=== PATIENT | female | born 1975 | race Caucasian/White ===

== ENCOUNTER 2023-10-29 10:16 | Inpatient (IN) | payer MEDICARE, OTHER ==
[~2023-10-29] VITALS: Ht 152.4 cm; Wt 70.8 kg
[2023-10-29] MEDS ORDERED: MORPHINE SULFATE INJ 4 MG/ML DISP.SYRIN ONE (10:42)
[2023-10-29] MEDS ORDERED: ONDANSETRON HCL/PF 4 MG/2 ML VIAL ONE (10:42)
[2023-10-29] MEDS: ONDANSETRON HCL/PF 4 MG/2 ML VIAL IVP ONE (10:53)
[2023-10-29] MEDS: MORPHINE SULFATE INJ 2 MG/ML DISP.SYRIN IV ONE (10:57)
[2023-10-29] MEDS ORDERED: LATA5DRO EACHEYE (10:57)
[2023-10-29] MEDS ORDERED: INSU100V30 SQ (10:57)
[2023-10-29] MEDS ORDERED: INSU100I26 SQ ×2 (10:57)
[2023-10-29] MEDS ORDERED: TOPI100T PO (10:57)
[2023-10-29] MEDS ORDERED: OLAN10TA3 PO (10:57)
[2023-10-29] MEDS ORDERED: MULT-754 PO (10:57)
[2023-10-29] MEDS ORDERED: LACT10SO58 PO (10:57)
[2023-10-29] MEDS ORDERED: PHEN300C6 PO (10:57)
[2023-10-29] MEDS ORDERED: ONDA4TAB5 PO (10:57)
[2023-10-29] MEDS ORDERED: LORA10TA7 PO (10:57)
[2023-10-29] MEDS ORDERED: GABA300C PO (10:57)
[2023-10-29] MEDS ORDERED: POTA8CAP20 PO (10:57)
[2023-10-29] MEDS ORDERED: BENZ1TAB7 PO (10:57)
[2023-10-29] MEDS ORDERED: SEMA0.25 SQ (10:57)
[2023-10-29] MEDS ORDERED: BISA10SU11 RC (10:57)
[2023-10-29] MEDS ORDERED: PANT20TA2 PO (10:57)
[2023-10-29] MEDS ORDERED: DICY10CA13 PO (10:57)
[2023-10-29] MEDS ORDERED: LEVE500T20 PO (10:57)
[2023-10-29] MEDS ORDERED: TEMA15CA PO (10:57)
[2023-10-29] MEDS ORDERED: DOCU250C14 PO (10:57)
[2023-10-29] MEDS ORDERED: ESCI5TAB PO (10:57)
[2023-10-29] MEDS ORDERED: BUSP15TA3 PO (10:57)
[2023-10-29] MEDS ORDERED: ISOS30TA86 PO (10:57)
[2023-10-29] MEDS ORDERED: METO25TA6 PO (10:57)
[2023-10-29 11:03] LABS: BASOPHILS # (AUTO) 0.1 K/uL (0.0-0.2); BASOPHILS % (AUTO) 0.9 % (0.0-2.0); EOSINOPHILS # (AUTO) 0.1 K/uL (0.0-0.7); EOSINOPHILS % (AUTO) 1.3 % (0.0-6.0); HEMATOCRIT 46 % (33-45); HEMOGLOBIN 15.5 g/dL (11.5-14.8); LYMPHOCYTES # (AUTO) 3.2 K/uL (0.8-4.8); LYMPHOCYTES % (AUTO) 36.3 % (20.0-44.0); MEAN CORPUSCULAR HEMOGLOBIN 30 PG (26.0-33.0); MEAN CORPUSCULAR HGB CONC 34 g/dl (31.0-36.0); MEAN CORPUSCULAR VOLUME 90 fL (82-100); MONOCYTES # (AUTO) 0.8 K/uL (0.1-1.30); MONOCYTES % (AUTO) 8.8 % (2.0-12.0); NEUTROPHILS # (AUTO) 4.7 K/uL (1.8-8.9); NEUTROPHILS % (AUTO) 52.7 % (43.0-81.0); PLATELET COUNT (AUTO) 261 K/uL (150-450); RED BLOOD CELL COUNT(AUTO) 5.13 MIL/uL (4.0-5.2); RED CELL DISTRIBUTION WIDTH 12.7 % (11.5-15.0); WHITE BLOOD COUNT (AUTO) 8.8 K/uL (4.3-11.0)
[2023-10-29 11:19] LABS: INR 1.07 (0.91-1.10); PARTIAL THROMBOPLASTIN TIME 29.2 SEC (24.3-34.3); PROTHROMBIN TIME 11.3 SECS (9.2-11.1)
[2023-10-29 11:35] LABS: ALANINE AMINOTRANSFERASE 60 U/L (12-78); ALBUMIN 3.2 g/dL (3.4-5.0); ALKALINE PHOSPHATASE 150 U/L (46-116); ASPARTATE AMINOTRANSFERASE 43 U/L (15-37); BILIRUBIN,DIRECT 0.1 mg/dL (0.0-0.2); BILIRUBIN,TOTAL 0.3 mg/dL (0.2-1.0); CALCIUM, SERUM 9.8 mg/dL (8.5-10.1); CARBON DIOXIDE 26 mmol/L (21-32); CHLORIDE 103 mmol/L (98-107); CREATININE 0.5 mg/dL (0.6-1.3); GLUCOSE 118 mg/dL (74-106); POTASSIUM 3.7 mmol/L (3.5-5.1); SODIUM SERUM 139 mmol/L (136-145); UREA NITROGEN, BLOOD 6 mg/dL (7-18)
[2023-10-29] MEDS ORDERED: TEMAZEPAM 15 MG CAPSULE PO PRN (12:30)
[2023-10-29] MEDS ORDERED: Z GUARD REMEDY 4 OZ OINT TP PRN (12:30)
[2023-10-29] MEDS ORDERED: DEXTROSE 50%-WATER 50 ML DISP.SYRIN IV PRN (12:30)
[2023-10-29] MEDS ORDERED: MAGNESIUM HYDROXIDE 30 ML UDC PO PRN (12:30)
[2023-10-29] MEDS ORDERED: MAG HYDROX/AL HYDROX/SIMETH 30 ML UDC PO PRN (12:30)
[2023-10-29] MEDS ORDERED: DICYCLOMINE HCL 10 MG CAPSULE PO PRN (12:30)
[2023-10-29] MEDS ORDERED: ONDANSETRON HCL/PF 4 MG/2 ML VIAL IVP PRN (12:30)
[2023-10-29] MEDS ORDERED: ZOLPIDEM TARTRATE 5 MG TABLET PO PRN (12:30)
[2023-10-29] MEDS ORDERED: ACETAMINOPHEN 325 MG TABLET PO PRN (12:30)
[2023-10-29 13:25] VITALS: BP 120/75; TEMP 98.1; O2SAT 97; O2SAT 98
[2023-10-29 16:00] VITALS: BP 114/76; TEMP 98.2; O2SAT 95
[2023-10-29] MEDS: BLOOD SUGAR DIAGNOSTIC 1 EACH STRIP IN SCH (17:11)
[2023-10-29] MEDS: LACTULOSE 10 G/15 ML UDC (PYXIS) PO SCH (17:12)
[2023-10-29] MEDS: PHENYTOIN EXTENDED RELEASE 100 MG CAPSULE PO SCH (17:12)
[2023-10-29] MEDS: LEVETIRACETAM (250 MG) 250 MG TABLET PO SCH (17:13)
[2023-10-29] MEDS: GABAPENTIN 300 MG CAPSULE PO SCH (17:13)
[2023-10-29] MEDS: DOCUSATE SODIUM 250 MG CAPSULE PO SCH (17:13)
[2023-10-29] MEDS: BENZTROPINE MESYLATE (1 MG) 1 MG TABLET PO SCH (17:13)
[2023-10-29] MEDS: OLANZAPINE 10 MG TABLET PO SCH (17:13)
[2023-10-29] MEDS: busPIRone 5 MG TABLET PO SCH (17:14)
[2023-10-29] MEDS: TOPIRAMATE 100 MG TABLET PO SCH (17:14)
[2023-10-29] MEDS: INSULIN REGULAR, HUMAN 100 UNIT/ML 3 ML VIAL SQ PRN (17:25)
[2023-10-29 20:00] VITALS: BP 135/83; TEMP 97.9; O2SAT 95
[2023-10-29] MEDS: METOPROLOL TARTRATE 25 MG TABLET PO SCH (21:24)
[2023-10-29] MEDS: INSULIN GLARGINE, 100 UNIT/ML CARTRIDGE SQ SCH (21:35)
[2023-10-29] MEDS: MORPHINE SULFATE INJ 4 MG/ML DISP.SYRIN IV PRN (21:45)
[2023-10-29] MEDS ORDERED: Medication Not On Formulary EA (Latanoprostene Bunod (Vyzulta) 1 DROP) EACHEYE SCH (22:00)
[2023-10-30] VITALS: BP 138/86; TEMP 98.1; O2SAT 92
[2023-10-30 04:00] VITALS: BP 127/89; TEMP 97.7; O2SAT 95
[2023-10-30 06:53] LABS: BASOPHILS % (AUTO) 0.5 % (0.0-2.0); EOSINOPHILS # (AUTO) 0.2 K/uL (0.0-0.7); HEMATOCRIT 43 % (33-45); HEMOGLOBIN 14.5 g/dL (11.5-14.8); LYMPHOCYTES # (AUTO) 2.5 K/uL (0.8-4.8); LYMPHOCYTES % (AUTO) 31.4 % (20.0-44.0); MEAN CORPUSCULAR HEMOGLOBIN 31 PG (26.0-33.0); MEAN CORPUSCULAR HGB CONC 34 g/dl (31.0-36.0); MEAN CORPUSCULAR VOLUME 91 fL (82-100); MONOCYTES # (AUTO) 0.8 K/uL (0.1-1.30); MONOCYTES % (AUTO) 9.8 % (2.0-12.0); NEUTROPHILS # (AUTO) 4.4 K/uL (1.8-8.9); NEUTROPHILS % (AUTO) 56.3 % (43.0-81.0); PLATELET COUNT (AUTO) 216 K/uL (150-450); RED CELL DISTRIBUTION WIDTH 12.7 % (11.5-15.0); WHITE BLOOD COUNT (AUTO) 7.9 K/uL (4.3-11.0)
[2023-10-30 07:30] VITALS: BP 134/90; TEMP 97.5; O2SAT 97
[2023-10-30 07:33] LABS: ALBUMIN 2.7 g/dL (3.4-5.0); BILIRUBIN,TOTAL 0.2 mg/dL (0.2-1.0); CALCIUM, SERUM 9.3 mg/dL (8.5-10.1); CREATININE 0.5 mg/dL (0.6-1.3); MAGNESIUM 1.9 mg/dL (1.8-2.4); PHOSPHORUS 3.8 mg/dL (2.5-4.9); POTASSIUM 3.5 mmol/L (3.5-5.1); TOTAL PROTEIN, SERUM 7.2 g/dL (6.4-8.2)
[2023-10-30] MEDS: PANTOPRAZOLE 40 MG TABLET.DR PO SCH (08:58)
[2023-10-30] MEDS: MULTIVITAMINS,THERAGRAN 1 UDTAB TABLET PO SCH (08:58)
[2023-10-30] MEDS: ESCITALOPRAM OXALATE (10 MG) 10 MG TABLET PO SCH (08:59)
[2023-10-30] MEDS: ISOSORBIDE MONONITRATE (30MG) 30 MG TAB.SR.24H PO SCH (08:59)
[2023-10-30] MEDS: SPIRONOLACTONE 25 MG TABLET PO SCH (09:00)
[2023-10-30] MEDS ORDERED: ASPIRIN 81 MG TAB.CHEW PO SCH (09:00)
[2023-10-30] MEDS: FUROSEMIDE 40 MG/4 ML VIAL IV SCH (09:00)
[2023-10-30] MEDS ORDERED: FUROSEMIDE 20 MG/2 ML VIAL IV SCH (14:00)
[2023-10-30 16:01] VITALS: BP 126/79; TEMP 98.1; O2SAT 94
[2023-10-30 20:00] VITALS: BP 118/87; TEMP 98.2; O2SAT 93
[2023-10-31 06:14] LABS: BASOPHILS # (AUTO) 0.1 K/uL (0.0-0.2); BASOPHILS % (AUTO) 0.7 % (0.0-2.0); EOSINOPHILS # (AUTO) 0.2 K/uL (0.0-0.7); EOSINOPHILS % (AUTO) 2.1 % (0.0-6.0); HEMATOCRIT 45 % (33-45); HEMOGLOBIN 15.1 g/dL (11.5-14.8); LYMPHOCYTES # (AUTO) 3.1 K/uL (0.8-4.8); LYMPHOCYTES % (AUTO) 38.9 % (20.0-44.0); MEAN CORPUSCULAR HEMOGLOBIN 31 PG (26.0-33.0); MEAN CORPUSCULAR HGB CONC 34 g/dl (31.0-36.0); MEAN CORPUSCULAR VOLUME 91 fL (82-100); MONOCYTES # (AUTO) 0.7 K/uL (0.1-1.30); MONOCYTES % (AUTO) 9.2 % (2.0-12.0); NEUTROPHILS # (AUTO) 3.9 K/uL (1.8-8.9); NEUTROPHILS % (AUTO) 49.1 % (43.0-81.0); PLATELET COUNT (AUTO) 228 K/uL (150-450); RED BLOOD CELL COUNT(AUTO) 4.92 MIL/uL (4.0-5.2); RED CELL DISTRIBUTION WIDTH 12.7 % (11.5-15.0); WHITE BLOOD COUNT (AUTO) 7.9 K/uL (4.3-11.0)
[2023-10-31 09:22] VITALS: BP 132/84
[2023-10-31] MEDS ORDERED: SPIR25TA PO (10:07)
== END 2023-10-31 12:45 | disposition home health service (06) | DRG 303 ==
LOC: ER 10:21 → TELE 13:23 → MED 10-30 10:30
PROVIDERS: ADMIT Nurse Practitioner Acute Care; ATTEND Nurse Practitioner Acute Care
DX: I25.110 Atherosclerotic heart disease of native coronary artery with unstable angina pectoris (principal); R18.8 Other ascites; E44.0 Moderate protein-calorie malnutrition; I50.32 Chronic diastolic (congestive) heart failure; K74.60 Unspecified cirrhosis of liver; R07.9 Chest pain, unspecified; E11.9 Type 2 diabetes mellitus without complications; I11.0 Hypertensive heart disease with heart failure; I48.91 Unspecified atrial fibrillation; E78.5 Hyperlipidemia, unspecified; E88.09 Other disorders of plasma-protein metabolism, not elsewhere classified; F20.9 Schizophrenia, unspecified; I25.2 Old myocardial infarction; K21.9 Gastro-esophageal reflux disease without esophagitis; Z86.73 Personal history of transient ischemic attack (TIA), and cerebral infarction without residual deficits; Z88.0 Allergy status to penicillin; Z88.2 Allergy status to sulfonamides; Z79.899 Other long term (current) drug therapy; R74.01 Elevation of levels of liver transaminase levels; Z79.4 Long term (current) use of insulin; M19.90 Unspecified osteoarthritis, unspecified site; Z68.30 Body mass index [BMI] 30.0-30.9, adult
CPT/HCPCS: 36415; 71045-TC; 76705-TC; 80048-TC; 80053-TC; 80061-TC; 80076-TC; 82962-TC; 83735-TC; 84100-TC; 84484-TC; 85025-TC; 85730-TC; 93307-TC; 97112-TC; 97116-TC; 97530-TC; G0378; J1815; J1940; J2270; J2405